=== PATIENT | female | born 1960 | race Caucasian/White ===

== ENCOUNTER 2017-05-28 22:43 | Emergency (ER) | payer OTHER, BC ==
[2017-05-28 23:26] LABS: KETONE, URINE AUTO RFX TRACE mg/dL (NEGATIVE); LEUKOCYTE ESTERASE UR AUTO RFX NEGATIVE (NEGATIVE); MUCUS, URINE RFX SMALL (NEGATIVE); RBC, URINE AUTO RFX 7 /HPF (0-3); SPECIFIC GRAVITY UR AUTO RFX 1.026 (1.002-1.035); SQUAM EPITHELIAL CELL UR AURFX 3 /HPF (0-6)
[2017-05-28 23:57] LABS: NITRITE, URINE AUTO RFX POSITIVE (NEGATIVE); WBC, URINE AUTO RFX 30 /HPF (0-3)
[2017-05-29] MEDS: CIPROFLOXACIN 500 MG TAB PO (00:16)
[2017-05-29] MEDS: NORCO, ANEXSIA 5/325MG TABLET (HYDROcodone/ACETAMINOPHEN) PO (00:18)
== END 2017-05-29 00:21 | disposition home or self-care (01) ==
LOC: M ED 05-29 00:21
DX: N39.0 Urinary tract infection, site not specified (principal); Z98.890 Other specified postprocedural states; Z88.0 Allergy status to penicillin; Z87.891 Personal history of nicotine dependence
CPT/HCPCS: 81001

== ENCOUNTER → 2018-05-04 | Outpatient (CLI) | payer OTHER ==
[~2018-05-04] MED LIST: CIPR-249 PO; PYRI1TAB5 PO
[2018-05-04 12:12] LABS: HEMOGLOBIN 14.4 g/dl (12.0-15.5); MEAN CORPUSCULAR HEMOGLOBIN 31.5 pg (27.0-33.0); MEAN CORPUSCULAR HGB CONC 35.1 g/dl (32.0-36.5); MEAN CORPUSCULAR VOLUME 89.7 fl (80.0-96.0); PLATELET COUNT, AUTOMATED 194 10^3/uL (150-450); RED BLOOD COUNT 4.57 10^6/uL (4.00-5.40); WHITE BLOOD COUNT 7.2 10^3/uL (4.0-10.0)
== END ==
LOC: M LAB 11:49
PROVIDERS: ATTEND Otolaryngology
DX: E05.90 Thyrotoxicosis, unspecified without thyrotoxic crisis or storm (principal); H93.13 Tinnitus, bilateral

== ENCOUNTER 2018-09-30 12:44 | Day surgery (SDC) | payer OTHER ==
[~2018-09-30] VITALS: Ht 167.6 cm; Wt 72.7 kg
[2018-09-30] MEDS ORDERED: KETOROLAC 30 MG/ML VIAL (J1885) IV ONE (13:15)
[2018-09-30] MEDS: HYDROMORPHONE HCL 0.5 MG/ 0.5 ML SYRINGE (J1170 PER 1) IV PRN ×4 (14:00→21:15)
--- NOTE | 2018-09-30 15:08 | REP ---
HISTORY: Knee pain. COMPARISON: None There is tricompartmental narrowing and tricompartmental marginal osteophytosis, but particularly affecting the medial compartment where there is subchondral sclerosis. There is a comminuted patellar fracture with soft tissue swelling and most probably seen in conjunction with an effusion. IMPRESSION: 1. Patellar fracture as described above with effusion. 2. Chronic changes as described above. Electronically Signed by Tonny Harmon DO 09/30/2018 03:21 P
[2018-09-30 16:03] LABS: HEMATOCRIT 37.8 % (36.0-47.0); HEMOGLOBIN 13.1 g/dl (12.0-15.5); MEAN CORPUSCULAR HEMOGLOBIN 30.8 pg (27.0-33.0); MEAN CORPUSCULAR HGB CONC 34.7 g/dl (32.0-36.5); MEAN CORPUSCULAR VOLUME 88.9 fl (80.0-96.0); PLATELET COUNT, AUTOMATED 183 10^3/uL (150-450); RED BLOOD COUNT 4.25 10^6/uL (4.00-5.40); WHITE BLOOD COUNT 7.7 10^3/uL (4.0-10.0)
[2018-09-30] MEDS ORDERED: ALEV220T22 PO (16:10)
[2018-09-30] MEDS ORDERED: IMIT100T PO (16:10)
[2018-09-30 16:21] LABS: ALBUMIN 3.7 GM/DL (3.2-5.2); ALT/SGPT 23 U/L (12-78); BILIRUBIN,TOTAL 0.5 MG/DL (0.2-1.0); BLOOD UREA NITROGEN 15 MG/DL (7-18); CALCIUM LEVEL 8.7 MG/DL (8.5-10.1); CARBON DIOXIDE LEVEL 26 MEQ/L (21-32); CHLORIDE LEVEL 110 MEQ/L (98-107); CREATININE FOR GFR 0.61 MG/DL (0.55-1.30); GLOMERULAR FILTRATION RATE > 60.0 (>51); GLUCOSE, FASTING 96 MG/DL (70-100); INR 0.93; PARTIAL THROMBOPLASTIN TIME 27.6 SECONDS (25.4-37.6); PROTHROMBIN TIME 12.6 SECONDS (12.1-14.4); SODIUM LEVEL 142 MEQ/L (136-145); TOTAL PROTEIN 6.8 GM/DL (6.4-8.2)
--- NOTE | 2018-09-30 16:48 | HPE ---
DATE OF ADMISSION: 09/30/2018 REASON FOR CONSULTATION: Injury to the left knee. HISTORY OF PRESENT ILLNESS: A 58-year-old healthy female who was walking into her trailer in preparation for going camping and slipped and fell and landed on her left knee anteriorly. She has quite a bit of pain, soreness and swelling. Her right upper arm struck against a cable as well. She complains of isolated soreness to mainly the left knee but also to her right arm and presents here to the emergency room and evaluated by the emergency room physician, Dr. Abdoulaye Avery. X-rays revealed a comminuted patella fracture on the left side. Because of that injury, I was called to see her. No other complaints of pain or soreness. No numbness or tingling associated with this. No loss of consciousness or head trauma or neck pain. PAST MEDICAL HISTORY: Otherwise unremarkable other than migraine headaches. MEDICATIONS: Just medicines for her migraine headaches as needed. ALLERGIES: CECLOR and PENICILLIN. PAST SURGICAL HISTORY: 1. She has had prior left knee meniscectomy, open back in the . 2. Open reduction internal fixation (ORIF) of a right wrist fracture. 3. ORIF of a left ring finger fracture. SOCIAL HISTORY: She does not smoke or drink alcohol excessively. She is single, here with her boyfriend as well as her family members and mother. She is retired from the and presently unemployed. REVIEW OF SYSTEMS: Health survey is amended to the chart. PHYSICAL EXAMINATION: An alert and oriented, pleasant female lying in her stretcher, complaining of isolated soreness mainly to her left knee. Temperature is 98.5, pulse 67, respiratory rate 20, blood pressure 136/60, oxygen saturation is 97% on room air. HEENT: Examination was benign. LUNGS: Clear. HEART: Regular. ABDOMEN: Nontender. Upper arm had some mild bruising medially but distal to that was neurologically intact. Her left knee had a positive extensor lag, was quite painful and quite swollen anteriorly in the prepatellar bursa area. Distally, she has got a good pulse. She can dorsiflex and plantar flex her foot. Normal sensation. Good capillary refill. Moves her toes well. X-rays reveal a comminuted very inferior patella fracture that is displaced. LABORATORY STUDIES: Presently pending. IMPRESSION: Comminuted inferior pole patella fracture with a positive extensor lag. I talked to her about this. I did recommend to her that this type of injury would best be treated with fixation to try to reestablish the continuity of her extensor mechanism to allow her to do a straight leg raise and have good quadriceps function again. We can try to treat this with open reduction internal fixation with wires and [id number] cerclage if the distal aspect of the fracture is amenable to that versus possible excision of the fragment and repairing the tendon back to the bone. This requires taking on the risk of surgery, however, which I discussed with her and she understands that there is a risk for infection, damage to nerves, blood vessels, anesthetic complications, phlebitis, embolism, heart attack, , amongst others, and she understands that, would like to proceed, and I think it reasonable. She has been nothing by mouth since this morning so we will contact the operating room and proceed accordingly when the operating room is available for fixation of this fracture.
[2018-09-30] MEDS ORDERED: CLINDAMYCIN 600 MG/50 ML PREMIX BAG As Ordered ONE ×2 (17:12→18:18)
[2018-09-30] MEDS ORDERED: CLINDAMYCIN INJ 900MG/6ML VIAL As Ordered ONE (17:43)
[2018-09-30] MEDS ORDERED: LIDOCAINE 2% INJ 100 MG/5 ML SDV (FOR ANES.) As Ordered ONE (17:55)
[2018-09-30] MEDS ORDERED: PROPOFOL 200 MG/20 ML VIAL As Ordered ONE (17:55)
[2018-09-30] MEDS ORDERED: fentaNYL 100 MCG/2 ML INJECTION (J3010) As Ordered ONE (17:56)
[2018-09-30] MEDS ORDERED: MIDAZOLAM INJ 2 MG/2 ML VIAL (J2250) As Ordered ONE (17:56)
[2018-09-30] MEDS ORDERED: BUPIVACAINE HCL 0.25% 10 ML VIAL As Ordered ONE (18:23)
[2018-09-30] MEDS ORDERED: dexameTHASONE 4 MG/ML 1ML VIAL (J1100) As Ordered ONE (18:23)
[2018-09-30] MEDS ORDERED: BUPIVACAINE LIPOSOME/PF 1.3% 20ML VIAL (13.3MG/ML)(EXPAREL)(C9290 PER1MG) As Ordered ONE (18:23)
[2018-09-30] MEDS ORDERED: HYDROmorphone HCL 2 MG/ML 1ML VIAL (J1170) As Ordered ONE (18:34)
[2018-09-30] MEDS ORDERED: ePHEDrine SULFATE 25 MG/5 ML(5MG/ML) SYRINGE As Ordered ONE ×2 (18:43→18:53)
[2018-09-30] MEDS ORDERED: ONDANSETRON 4MG/2ML VIAL (J2405) As Ordered ONE (18:56)
[2018-09-30] MEDS ORDERED: fentaNYL 100 MCG/2 ML INJECTION (J3010) IV PRN (20:00)
[2018-09-30] MEDS ORDERED: ONDANSETRON 4MG/2ML VIAL (J2405) IV PRN (20:00)
[2018-09-30] MEDS ORDERED: NORCO, ANEXSIA 5/325MG TABLET (HYDROcodone/ACETAMINOPHEN) PO PRN (20:00)
[2018-09-30] MEDS ORDERED: MORPHINE 4 MG/ML 1ML VIAL/SYRINGE (J2270) IV PRN (20:00)
[2018-09-30] MEDS ORDERED: LR 1,000 ML IV SCH (20:00)
[2018-09-30] MEDS: PERCOCET 5MG/325MG TAB PO PRN ×2 (20:14→20:55)
[2018-09-30] MEDS: MORPHINE 10 MG/ML 1ML VIAL (J2270) IV PRN ×5 (20:34→20:55)
--- NOTE | 2018-09-30 20:35 | REP ---
Left knee: Limited single view. Intraoperative. History: Patellar fracture. Film in OR. 4 seconds of fluoroscopy time is reported. Findings: A single lateral fluoroscopically obtained spot radiograph of the patella is presented. There is soft tissue irregularity in the infrapatellar soft tissues. The inferior pole patellar fracture fragments appear to have been resected. Electronically Signed by Wesley Villalobos MD 09/30/2018 10:10 P
[2018-09-30] MEDS ORDERED: HYDROMORPHONE HCL 0.5 MG/ 0.5 ML SYRINGE (J1170 PER 1) As Ordered ONE (21:07)
[2018-09-30] MEDS ORDERED: diphenhydrAMINE INJ 50MG/ML VIAL (J1200) As Ordered ONE (21:23)
[2018-09-30 21:45] VITALS: BP 145/81
[2018-09-30] MEDS ORDERED: diphenhydrAMINE INJ 50MG/ML VIAL (J1200) IV ONE (21:45)
[2018-09-30 22:15] VITALS: BP 131/76
[2018-09-30 23:15] VITALS: BP 108/66
[2018-09-30] MEDS: CLINDAMYCIN 600 MG in APPROPRIATE DILUENT 1 EA IV SCH (23:46)
[2018-10-01 00:15] VITALS: BP 106/59
[2018-10-01 01:15] VITALS: BP 109/55
[2018-10-01 02:15] VITALS: BP 107/58
[2018-10-01] MEDS: CLINDAMYCIN 600 MG in APPROPRIATE DILUENT 1 EA IV SCH ×2 (05:46→11:03)
[2018-10-01 06:00] VITALS: BP 101/58
[2018-10-01] MEDS: LR 1,000 ML IV SCH ×2 (06:54→11:15)
[2018-10-01] MEDS ORDERED: ASPI-1 PO (07:36)
[2018-10-01] MEDS ORDERED: HYDR-3713 PO (07:36)
[2018-10-01] MEDS: NORCO, ANEXSIA 5/325MG TABLET (HYDROcodone/ACETAMINOPHEN) PO PRN ×2 (08:53→12:30)
--- NOTE | 2018-10-01 08:59 | REP ---
Left knee: Two views. History: Postop. Comparison left knee radiographs are from September 30, 2008. Findings: AP and lateral views of the left knee demonstrate that the patient's comminuted inferior pole patellar fracture has been repaired. Post traumatic irregularity persists at the lower pole. Anterior skin howard are seen. Prepatellar soft-tissue swelling is noted. Electronically Signed by Wesley Villalobos MD 10/01/2018 08:50 A
[2018-10-01 10:00] VITALS: BP 113/60
--- NOTE | 2018-10-02 11:52 | RO ---
DATE OF PROCEDURE: 09/30/2018 PREOPERATIVE DIAGNOSIS: Comminuted inferior pole patella fracture left knee. POSTOPERATIVE DIAGNOSIS: Comminuted inferior pole patella fracture left knee. PROCEDURE: Open reduction internal fixation left comminuted inferior pole patella fracture. SURGEON: Chata Mcduffie MD FOREIGN LANGUAGE PROFESSOR: ANESTHESIA: General endotracheal tube anesthetic. COMPLICATIONS: None. ESTIMATED BLOOD LOSS: 100 mL. SPECIMENS: None. PROCEDURE: Antibiotics were given intravenously preoperatively and a successful anesthetic was established. Tourniquet placed left upper thigh and not inflated. The left lower extremity was then carefully prepped and draped in the usual sterile fashion, elevated and after appropriate time out a longitudinal incision was made directly over the knee down to the fracture site. The fracture hematoma was copiously irrigated and the knee joint was also irrigated of the hematoma and coagulating blood clot. The fracture was quite inferior, there was just small flex of the inferior pole patella left, but I felt it best to keep the fragments in place to allow better suture fixation. I felt this was best handled by suture fixation as opposed to K-wires and any other hardware. Thus, three cottony Deknatel sutures were passed in a Pepin fashion from the inferior fragment of the comminuted fracture of the patella going distally, then proximally, such that I had three good Olga sutures, and then I made four holes into the patella proximally using a large K-wire and I passed one limb medially through the medial hole, two limbs through the next hole over, two limbs to the next hole, then one limb on the final far lateral hole. All of these sutures were then brought up and secured tight to the patella and held with a hemostat and fluoroscopic imaging in the lateral plane confirmed we had anatomic reduction. I then tied each suture down snuggly and then the retinacular rents that were present medially and laterally were close with #1 PDS sutures after irrigating the knee joint once again. I reinforced the repair with #1 figure-of-8 sutures also at the junction of the bony fragments. Small comminuted pieces were excised. I then irrigated and closed the deep subdermal tissues with interrupted #2-0 PDS sutures. Tourniquet was released. Skin was closed with howard, covered by Adaptic dress sterile bulky dressing. A knee immobilizer was placed and then she was awakened from her anesthetic and then transferred to the recovery room in stable condition. There were no intraoperative complications.
== END 2018-10-01 12:35 | disposition home or self-care (01) ==
LOC: M ED 12:44 → EDBD 12:44 → M SDC 17:30 → M MS5PR 21:42 → M SDC 10-01 12:35
PROVIDERS: ATTEND Orthopaedic Surgery
DX: S82.042A Displaced comminuted fracture of left patella, initial encounter for closed fracture (principal); S46.901A Unspecified injury of unspecified muscle, fascia and tendon at shoulder and upper arm level, right arm, initial encounter; W01.0XXA Fall on same level from slipping, tripping and stumbling without subsequent striking against object, initial encounter; Y92.89 Other specified places as the place of occurrence of the external cause; Z88.0 Allergy status to penicillin; Y99.9 Unspecified external cause status; Y93.89 Activity, other specified
CPT/HCPCS: 27524; 73560; 73564; 80053; 85027; 85610; 85730; 96365; 96366; 96375; 96376; 97116; 97161; 99284; C9290; J1100; J1170; J1200; J1885; J2250; J2270; J2405; J3010

== ENCOUNTER → 2019-03-22 | Outpatient (CLI) | payer OTHER ==
[~2019-03-22] MED LIST changes: +ALEV220T22 PO; +ASPI-1 PO; +HYDR-3713 PO; +IMIT100T PO
--- NOTE | 2019-03-27 15:22 | REPMRS ---
Patient History The patient states she had a clinical breast exam in February 2019. No known family history of cancer. Taking estrogen for 2 months. Pateint had breast lift 05/2006. Digital Mammo Screening Bilat: March 22, 2019 - Exam #: [id number] Bilateral CC and MLO view(s) were taken. Technologist: Melina Zhang, Technologist Prior study comparison: 2016, digital [facility]. February 08, 2015, bilateral digital woman screen mammo, [facility]. FINDINGS: There are scattered fibroglandular densities. There has been no change in the appearance of the mammogram from the prior studies. There is a mild amount of scattered fibroglandular density which is fairly symmetric. There is no interval development of dominant mass, architectural distortion, or grouped microcalcification suggestive of malignancy. Assessment: BI-RADS/ACR category 1 mammogram. Negative Mammogram. Recommendation Routine screening mammogram of both breasts in 1 year (for women over age 40). This patient's Lifetime Breast Cancer Risk is estimated at 6.0 %. This mammogram was interpreted with the aid of an FDA-approved computer-aided dectection system. Electronically Signed By: Mykel Villalobos MD 03/27/19 [id number]
== END ==
LOC: M RAD 08:52
PROVIDERS: ATTEND Physician Assistant Medical
DX: Z12.31 Encounter for screening mammogram for malignant neoplasm of breast (principal)

== ENCOUNTER → 2019-06-16 | Outpatient (CLI) | payer OTHER ==
[2019-06-16 07:24] LABS: BASO # 0.1 10^3/uL (0.0-0.2); EOS # 0.1 10^3/uL (0.0-0.5); EOS % 0.8 % (0.0-3.0); HEMATOCRIT 40.5 % (36.0-47.0); HEMOGLOBIN 13.8 g/dl (12.0-15.5); LYMPH # 1.7 10^3/uL (1.5-5.0); LYMPH % 27.7 % (24.0-44.0); MEAN CORPUSCULAR HEMOGLOBIN 30.8 pg (27.0-33.0); MEAN CORPUSCULAR HGB CONC 34.1 g/dl (32.0-36.5); MEAN CORPUSCULAR VOLUME 90.4 fl (80.0-96.0); MONO # 0.5 10^3/uL (0.0-0.8); MONO % 8.1 % (0.0-5.0); NEUTROPHILS # 3.7 10^3/uL (1.5-8.5); NEUTROPHILS % 62.1 % (36.0-66.0); PLATELET COUNT, AUTOMATED 182 10^3/uL (150-450); RED BLOOD COUNT 4.48 10^6/uL (4.00-5.40)
[2019-06-16 07:51] LABS: ALBUMIN 3.8 GM/DL (3.2-5.2); ALT/SGPT 24 U/L (12-78); BILIRUBIN,TOTAL 0.5 MG/DL (0.2-1.0); BLOOD UREA NITROGEN 15 MG/DL (7-18); CALCIUM LEVEL 8.9 MG/DL (8.5-10.1); CARBON DIOXIDE LEVEL 26 MEQ/L (21-32); CHLORIDE LEVEL 109 MEQ/L (98-107); CREATININE FOR GFR 0.76 MG/DL (0.55-1.30); GLOMERULAR FILTRATION RATE > 60.0 (>51); GLUCOSE, FASTING 82 MG/DL (70-100); POTASSIUM SERUM 4.1 MEQ/L (3.5-5.1); SODIUM LEVEL 142 MEQ/L (136-145); TOTAL PROTEIN 6.9 GM/DL (6.4-8.2)
== END ==
LOC: M LAB 06:49
PROVIDERS: ATTEND Psychiatry & Neurology Neurology
DX: G51.39 Clonic hemifacial spasm, unspecified (principal); Z79.82 Long term (current) use of aspirin

== ENCOUNTER → 2019-07-03 | Outpatient (CLI) | payer OTHER ==
[~2019-07-03] MED LIST changes: +PROHANCE 279.3MG/ML 15ML VIAL (A9576) As Ordered ONE
--- NOTE | 2019-07-03 18:11 | REPVR ---
PROCEDURE INFORMATION: Exam: MR Head Without and With Contrast Exam date and time: 07/03/2019 5:43 PM Age: 59 years old Clinical indication: Speech disturbance; Unspecified; Patient HX: PT states left side neck pain goes to face and left eye twitching; Additional info: Cervicalgia, clonic hemifacial spasm, left TECHNIQUE: Imaging protocol: MR of the head without and with intravenous contrast. Contrast material: PROHANCE; Contrast volume: 14 ml; Contrast route: 22G; COMPARISON: No relevant prior studies available. FINDINGS: Ventricles demonstrate normal size and configuration. Major vascular flow voids at the skull base are preserved. No extra-axial fluid collection. No midline shift or intracranial mass effect. Mild nonspecific white matter gliosis, probable chronic microvascular ischemia. No cerebral edema. No diffusion restriction. No pathologic intracranial enhancement. Visualized paranasal sinuses and mastoid air cells are clear. IMPRESSION: No acute intracranial abnormality. Electronically signed by: Tico Laurent On 07/03/2019 18:11:02 PM
--- NOTE | 2019-07-03 18:15 | REPVR ---
PROCEDURE INFORMATION: Exam: MR Cervical Spine Without Contrast Exam date and time: 07/03/2019 5:43 PM Age: 59 years old Clinical indication: Other: PT states left side neck pain goes to face and left eye twitching; Additional info: Cervicalgia, spondylolysis, cervical spine region TECHNIQUE: Imaging protocol: Multiplanar magnetic resonance images of the cervical spine without intravenous contrast. COMPARISON: No relevant prior studies available. FINDINGS: Patient motion. Vertebral body height and AP alignment is preserved. Multilevel disc desiccation. No evidence of discitis/osteomyelitis. No abnormal cord signal or cord expansion. No epidural fluid collection. C2-C3: No significant central or foraminal stenosis. C3-C4: Mild disc osteophyte complex with right greater than left uncinate spurring. No significant central canal stenosis. Moderate to severe right foraminal stenosis. C4-C5: Mild disc osteophyte complex with right greater than left uncinate spurring. No significant central canal stenosis. Moderate right and mild left foraminal stenosis. C5-C6: Disc osteophyte complex eccentric towards the left side with left greater than right uncinate spurring. No significant central canal stenosis. There is severe left foraminal stenosis. C6-C7: Mild disc osteophyte complex eccentric towards the left side with left-sided uncinate spurring. No significant central canal stenosis. There is moderate to severe left foraminal stenosis. C7-T1: No significant central or foraminal stenosis. IMPRESSION: 1. No acute abnormality. 2. Degenerative findings as above including multilevel foraminal stenoses. No significant central canal stenosis or cord compression. Electronically signed by: Tico Laurent On 07/03/2019 18:14:54 PM
== END ==
LOC: M RAD 15:59
PROVIDERS: ATTEND Psychiatry & Neurology Neurology
DX: M48.02 Spinal stenosis, cervical region (principal); M25.78 Osteophyte, vertebrae; G24.5 Blepharospasm; G51.32 Clonic hemifacial spasm, left; M43.02 Spondylolysis, cervical region
CPT/HCPCS: 70553; 72141; A9576

== ENCOUNTER → 2021-03-31 | Outpatient (CLI) | payer OTHER ==
[~2021-03-31] MED LIST changes: -PROHANCE 279.3MG/ML 15ML VIAL (A9576) As Ordered ONE
--- NOTE | 2021-03-31 09:07 | REPMRS ---
Patient History The patient states she has not had a clinical breast exam in over a year. No known family history of cancer. Breast lift 2006. Taking estrogen for 2 years 2 months. Tomosynthesis is performed. Volpara breast density is a. [facility] lifetime risk of breast cancer 5.6%. Patient states no breast complaints today. Patient has signed MRS History Sheet. Digital Woman Screen Mammo: March 31, 2021 - Exam #: [id number] Bilateral CC and MLO view(s) were taken. Technologist: Cindy Neil, Technologist Prior study comparison: March 22, 2019, bilateral digital mammo screening bilat, performed at [facility]. 2017, digital mammo screening bilat, [facility]. FINDINGS: There are scattered fibroglandular densities. There has been no change in the appearance of the mammogram from the prior studies. There is a mild amount of residual fibroglandular tissue which is fairly symmetric. There is no interval development of dominant mass, architectural distortion, or clustered microcalcification suggestive of malignancy. Assessment: BI-RADS/ACR category 1 mammogram. Negative Mammogram. Recommendation Routine screening mammogram in 1 year (for women over age 40). This mammogram was interpreted with the aid of an FDA-approved computer-aided dectection system. Electronically Signed By: Dipesh Barillas MD 03/31/21 [id number]
== END ==
LOC: M WHC 07:51
PROVIDERS: ATTEND Physician Assistant Medical
DX: Z12.31 Encounter for screening mammogram for malignant neoplasm of breast (principal)

== ENCOUNTER → 2022-06-12 | Outpatient (CLI) | payer OTHER | LOC: M WHC 13:10 | PROVIDERS: ATTEND Physician Assistant Medical | DX: Z12.31 Encounter for screening mammogram for malignant neoplasm of breast (principal) ==

== ENCOUNTER 2023-01-23 07:42 | Emergency (ER) | payer OTHER ==
[~2023-01-23] VITALS: Ht 167.6 cm; Wt 70.0 kg
[2023-01-23 10:36] VITALS: BP 139/67; TEMP 97.1; O2SAT 100
== END 2023-01-23 11:18 | disposition home or self-care (01) ==
LOC: M ED 07:42
DX: S86.111A Strain of other muscle(s) and tendon(s) of posterior muscle group at lower leg level, right leg, initial encounter (principal); Y92.89 Other specified places as the place of occurrence of the external cause; Y93.01 Activity, walking, marching and hiking; Z88.0 Allergy status to penicillin; Z88.8 Allergy status to other drugs, medicaments and biological substances

== ENCOUNTER → 2023-06-14 | Outpatient (CLI) | payer OTHER | LOC: M WHC 13:22 | PROVIDERS: ATTEND Physician Assistant Medical | DX: Z12.31 Encounter for screening mammogram for malignant neoplasm of breast (principal) ==

== ENCOUNTER 2024-01-24 08:47 | Emergency (ER) | payer OTHER ==
[~2024-01-24] VITALS: Ht 167.6 cm; Wt 72.1 kg
[2024-01-24 08:47] VITALS: BP 124/76; TEMP 96.8; O2SAT 97
== END 2024-01-24 12:55 | disposition home or self-care (01) ==
LOC: M ED 08:47
DX: U07.1 COVID-19 (principal); R21 Rash and other nonspecific skin eruption; E78.5 Hyperlipidemia, unspecified; G43.909 Migraine, unspecified, not intractable, without status migrainosus; Z88.0 Allergy status to penicillin; Z88.1 Allergy status to other antibiotic agents

== ENCOUNTER → 2024-06-15 | Outpatient (CLI) | payer OTHER | LOC: M WHC 14:53 | PROVIDERS: ATTEND Physician Assistant Medical | DX: Z12.31 Encounter for screening mammogram for malignant neoplasm of breast (principal); R92.313 Mammographic fatty tissue density, bilateral breasts ==

== ENCOUNTER 2025-04-17 10:15 | Emergency (ER) | payer OTHER ==
[~2025-04-17] VITALS: Ht 162.6 cm; Wt 72.7 kg
[2025-04-17] MEDS: NS (Normal Saline) 0.9% 1,000 ML IV ONE (12:36)
[2025-04-17] MEDS: diphenhydrAMINE 50 MG/ML VIAL IV ONE (12:37)
[2025-04-17] MEDS: KETOROLAC 30 MG/ML 1 ML VIAL IV ONE (12:37)
[2025-04-17 12:38] LABS: BASO # 0.0 10^3/uL (0.0-0.2); BASO % 0.3 % (0.0-1.0); EOS # 0.0 10^3/uL (0.0-0.5); EOS % 0.0 % (0.0-3.0); LYMPH # 0.8 10^3/uL (1.5-5.0); LYMPH % 8.6 % (24.0-44.0); MONO # 0.4 10^3/uL (0.0-0.8); MONO % 4.8 % (2.0-8.0); NEUTROPHILS # 7.9 10^3/uL (1.5-8.5); NEUTROPHILS % 86.0 % (36.0-66.0); PLATELET COUNT, AUTOMATED 215 10^3/uL (150-450)
[2025-04-17 12:46] LABS: ALT/SGPT 32 U/L (7.0-40); AST/SGOT 29 U/L (<34); CALCIUM LEVEL 9.3 MG/DL (8.3-10.6); CARBON DIOXIDE LEVEL 26 MMOL/L (20-31); CHLORIDE LEVEL 106 MMOL/L (98-107); CREATININE FOR GFR 0.64 MG/DL (0.55-1.30); GLOMERULAR FILTRATION RATE > 90.0 (>45); MAGNESIUM LEVEL 2.2 MG/DL (1.8-2.4); POTASSIUM SERUM 3.9 MMOL/L (3.5-5.1); SODIUM LEVEL 143 MMOL/L (136-145)
[2025-04-17 13:39] VITALS: BP 145/84; TEMP 97.6; O2SAT 99
== END 2025-04-17 13:55 | disposition home or self-care (01) ==
LOC: M ED 10:15
DX: R51.9 Headache, unspecified (principal); E78.5 Hyperlipidemia, unspecified; Z88.0 Allergy status to penicillin; Z88.1 Allergy status to other antibiotic agents; Z79.899 Other long term (current) drug therapy
CPT/HCPCS: 70450; 80048; 80076; 83735; 85025; 87486; 87581; 87633; 87798; 96361; 96374; 96375; 99284; J1200; J1885; J2765